=== PATIENT | female | born 1985 | race Caucasian/White ===

== ENCOUNTER 2024-06-23 15:55 | Emergency (ER) | payer OTHER ==
[~2024-06-23] VITALS: Ht 170.2 cm; Wt 71.2 kg
[2024-06-23 21:08] VITALS: BP 132/96
== END 2024-06-23 21:08 | disposition home or self-care (01) ==
LOC: ED 15:55
DX: T83.32XA Displacement of intrauterine contraceptive device, initial encounter (principal); Y76.8 Miscellaneous obstetric and gynecological devices associated with adverse incidents, not elsewhere classified; Z88.6 Allergy status to analgesic agent
CPT/HCPCS: 99283